=== PATIENT | female | born 2000 | race Caucasian/White ===

== ENCOUNTER 2024-12-12 21:21 | Emergency (ER) | payer OTHER ==
[~2024-12-12 21:21] MED LIST: Iopamidol-370 76% 500 ML MDV (1 ML CHARGE) ONE
[2024-12-12 21:54] LABS: Pregnancy Test - Urine (BHCG) Negative (Negative); Pregu Control Background? CLEAR/WHITE (CLR/WHITE); Pregu Control Bar Appear? YES (CONTROL BAR)
[2024-12-12 21:56] LABS: Bacteria/HPF None Seen HPF (None Seen); CAUTI Indications for Culture Pelvic or flank pain; Glucose, Urine (Dipstick) Normal (Negative); Leukocyte 25 Leu/uL (Negative); Protein, Urine (Dipstick) 20 mg/dL (Neg-Trace); RBC/HPF Greater than 50 HPF (0-3); Specific Gravity, Urine 1.034 (1.002-1.036)
[2024-12-12 21:57] LABS: Urine Culture Reflex Yes Yes
[2024-12-12 22:02] LABS: #Basophils 0.05 10x3/uL (0.0-0.2); #Eosinophils 0.44 10x3/uL (0.0-0.7); #Monocytes 0.75 10x3/uL (0.11-0.59); #Neutrophils 4.89 10x3/uL (1.40-6.50); %Basophils 0.6 % (0.0-1.0); %Eosinophils 4.9 % (0.0-10.0); %Lymphocytes 31.3 % (21.0-51.0); %Monocytes 8.4 % (0.0-10.0); %Neutrophils 54.6 % (42.0-75.0); Hematocrit 35.1 % (36.0-47.0); Hemoglobin 11.9 g/dL (12.0-16.0); Mean Corpuscular Hemoglobin 28.7 pg (27.0-31.0); Mean Corpuscular Volume 84.8 fL (78.0-98.0); Platelet Count 392 10x3/uL (130-400); Red Blood Cell (RBC) Count 4.14 mill/uL (4.20-5.40); White Blood Cell (WBC) Count 8.95 10x3/uL (4.8-10.8)
[2024-12-12] MEDS ORDERED: Ketorolac Tromethamine 30 MG (1 mL) VIAL ONE (22:08)
[2024-12-12] MEDS ORDERED: Ondansetron PF 4 MG/2 ML Vial ONE (22:09)
[2024-12-12 22:18] LABS: Anion Gap 16 mmol/L (10-20); BUN (Urea Nitrogen) 15 mg/dL (7.0-18.7); Calc. Creatinine Clearance 0 mL/min (70-130); Calcium 9.2 mg/dL (7.8-10.44); Carbon Dioxide 22 mmol/L (22-29); Chloride 106 mmol/L (98-107); Glucose 105 mg/dL (70-105); Potassium 3.7 mmol/L (3.5-5.1); Sodium 140 mmol/L (136-145)
[2024-12-12] MEDS ORDERED: HYDROmorphone 0.5 MG/0.5 ML SYRINGE ONE (23:17)
[2024-12-12] MEDS ORDERED: Milk Of Magnesia 30 ML UDCUP ONE (23:17)
[2024-12-12] MEDS ORDERED: Lidocaine Viscous Sol 2% 15 ml UD Cup ONE (23:18)
[2024-12-12] MEDS ORDERED: Famotidine/PF 20 mg/2ml Vial ONE (23:18)
[2024-12-12 23:45] LABS: ALT (SGPT) 25 U/L (Less than 34); AST (SGOT) 20 U/L (11-34); Albumin 3.8 g/dL (3.1-4.5); Alkaline Phosphatase 53 U/L (40-110); Anion Gap 12 mmol/L (10-20); BUN (Urea Nitrogen) 15 mg/dL (7.0-18.7); Bilirubin, Total 0.3 mg/dL (0.3-1.2); Calc. Creatinine Clearance 0 mL/min (70-130); Calcium 8.1 mg/dL (7.8-10.44); Carbon Dioxide 22 mmol/L (22-29); Chloride 108 mmol/L (98-107); Globulin 2.8 g/dL (2.4-3.5); Glucose 108 mg/dL (70-105); Lipase 10 U/L (8-78); Potassium 3.8 mmol/L (3.5-5.1); Sodium 138 mmol/L (136-145)
[2024-12-13] MEDS ORDERED: Ondansetron PF 4 MG/2 ML Vial ONE (01:37)
[2024-12-13] MEDS ORDERED: HYDROmorphone 0.5 MG/0.5 ML SYRINGE ONE (01:37)
[2024-12-13] MEDS ORDERED: cefTRIAXone (ROCEPHIN) 2 GM VIAL ONE (02:05)
[2024-12-13 02:59] LABS: Cocaine Metabolite Screen Negative (Negative); THC/Cannabinoid Screen Negative (Negative); Tricyclic Screen Negative (Negative)
== END 2024-12-12 23:33 | disposition home or self-care (01) ==
LOC: ERS 21:21
DX: N13.6 Pyonephrosis (principal); K82.4 Cholesterolosis of gallbladder
CPT/HCPCS: 36415; 74177; 80048; 80306; 81001; 81025; 83690; 85025; 87086; 96361; 96365; 96367; 96375; 96376; J1171; J1885; J2270; J2405; J2550; J3490; Q9967

== ENCOUNTER 2025-01-22 09:31 | Day surgery (SDC) | payer OTHER ==
[2025-01-13 15:06] VITALS: BMI 34.9
[2025-01-22] MEDS ORDERED: Lidocaine 1% PF 5 ML VIAL ONE (10:50)
[2025-01-22] MEDS ORDERED: PROPOFOL 20 ML ONE (10:50)
[2025-01-22] MEDS ORDERED: Rocuronium Bromide 10 MG/ML (10ML VIAL) ONE (10:50)
[2025-01-22] MEDS ORDERED: fentaNYL PF 100 MCG/2 ML SYRINGE ONE ×2 (10:50→12:37)
[2025-01-22] MEDS ORDERED: PHENYLEPHRINE-NS 100 MCG/ML 10 ML SYRINGE ONE (10:55)
[2025-01-22] MEDS ORDERED: SUGAMMADEX SODIUM 200 MG/2 ML VIAL ONE ×2 (11:07→12:04)
[2025-01-22] MEDS ORDERED: Scopolamine 1 mg/72 hour Patch ONE (11:10)
[2025-01-22] MEDS ORDERED: Bupivacaine 0.25% HCL 30 ML VIAL ONE (11:25)
[2025-01-22] MEDS ORDERED: CEFAZOLIN 2 GM VIAL ONE (11:35)
[2025-01-22] MEDS ORDERED: Ondansetron PF 4 MG/2 ML Vial ONE (11:48)
== END 2025-01-22 14:57 | disposition home or self-care (01) ==
LOC: SDC 09:31
PROVIDERS: ATTEND Surgery
PROC: 0FT44ZZ Resection of Gallbladder, Percutaneous Endoscopic Approach (ICD-10-PCS; principal; 2025-01-22)
DX: K81.1 Chronic cholecystitis (principal)
CPT/HCPCS: 47562; C9776; 88304; C1889; J0169; J0665; J1100; J2250; J2405; J2704; J3010; S2900